=== PATIENT | male | born 1955 | race Caucasian/White ===

== ENCOUNTER 2019-02-28 17:53 | Emergency (ER) | payer BC ==
[~2019-02-28] VITALS: Ht 180.3 cm; Wt 94.0 kg
[2019-02-28] MEDS ORDERED: ZESTRIL10 M1 PO (18:04)
[2019-02-28 19:03] LABS: HEMATOCRIT 44.2 % (39.0-50.0); HEMOGLOBIN 14.8 g/dl (14.0-18.0); MEAN CORPUSCULAR HGB 29.5 pG CALC (26.0-32.0); MEAN CORPUSCULAR HGB CONC 33.5 g/L CALC (32.0-36.0); NEUT# 8.65 thou/uL (1.82-7.42); RED BLOOD COUNT 5.02 mill/uL (4.70-6.10); RED CELL DISTRI WIDTH 13.2 % (11.5-15.5)
[2019-02-28 19:11] LABS: ANION GAP 16 (6-22 (CALC)); BUN 27 mg/dL (8-23); BUN/CREATININE RATIO 32 (12-20 (CALC)); CARBON DIOXIDE 22 mmol/l (22-30); CHLORIDE 103 mmol/l (95-108); CREATININE 0.8 mg/dL (0.7-1.3); GFR > 60 ML/MIN (>=60 (CALC)); GFR FOR AFR.AMER. > 60 ML/MIN (>=60 (CALC)); POTASSIUM 3.9 mmol/l (3.5-5.1); SODIUM 137 mmol/l (137-146)
[2019-02-28] MEDS ORDERED: ULTRAM50 M1 PO (20:23)
[2019-02-28] MEDS ORDERED: LOMOTIL2.5 MG PO (20:23)
[2019-02-28] MEDS ORDERED: ZOFRAN ODT4 MG PO (20:23)
[2019-02-28 20:36] VITALS: BP 146/72
== END 2019-02-28 20:36 | disposition home or self-care (01) | DRG 392 ==
LOC: ED 17:53
PROVIDERS: Family Medicine
DX: K52.9 Noninfective gastroenteritis and colitis, unspecified (principal); I10 Essential (primary) hypertension

== ENCOUNTER 2019-03-17 11:07 | Day surgery (SDC) | payer BC ==
[~2019-03-17] VITALS: Ht 181.6 cm; Wt 85.7 kg
[~2019-03-17 11:07] MED LIST: LOMOTIL2.5 MG PO; ULTRAM50 M1 PO; ZESTRIL10 M1 PO; ZOFRAN ODT4 MG PO
[2019-03-17 13:01] VITALS: BP 118/57
== END 2019-03-17 13:13 | disposition home or self-care (01) | DRG 379 ==
LOC: ENDO 11:07 → ORM 13:00 → ENDO 13:00
PROVIDERS: ATTEND Internal Medicine Gastroenterology
PROC: 0DB48ZX Excision of Esophagogastric Junction, Via Natural or Artificial Opening Endoscopic, Diagnostic (ICD-10-PCS; principal; 2019-03-17)
PROC: 0DBN8ZX Excision of Sigmoid Colon, Via Natural or Artificial Opening Endoscopic, Diagnostic (ICD-10-PCS; 2019-03-17)
PROC: 0DBK8ZX Excision of Ascending Colon, Via Natural or Artificial Opening Endoscopic, Diagnostic (ICD-10-PCS; 2019-03-17)
PROC: 0DBP8ZX Excision of Rectum, Via Natural or Artificial Opening Endoscopic, Diagnostic (ICD-10-PCS; 2019-03-17)
DX: K29.71 Gastritis, unspecified, with bleeding (principal); K44.9 Diaphragmatic hernia without obstruction or gangrene; K20.9 Esophagitis, unspecified; K57.31 Diverticulosis of large intestine without perforation or abscess with bleeding; D12.2 Benign neoplasm of ascending colon; K63.5 Polyp of colon; K62.1 Rectal polyp; K64.4 Residual hemorrhoidal skin tags; K64.8 Other hemorrhoids; I10 Essential (primary) hypertension; Z87.891 Personal history of nicotine dependence

== ENCOUNTER 2020-07-10 01:12 | Emergency (ER) | payer MEDICARE, BC ==
[~2020-07-10] VITALS: Ht 181.6 cm; Wt 94.0 kg
[2020-07-10 02:02] LABS: HEMATOCRIT 46.4 % (39.0-50.0); HEMOGLOBIN 15.5 g/dl (14.0-18.0); IMMATURE GRANULOCYTES 0.4 % (0.0-5.0); MEAN CELL VOLUME 90.1 fL CALC (80.0-100.0); MEAN CORPUSCULAR HGB 30.1 pG CALC (26.0-32.0); MEAN CORPUSCULAR HGB CONC 33.4 g/dL CAL (32.0-36.0); NEUT# 5.99 thou/uL (1.82-7.42); RED BLOOD COUNT 5.15 mill/uL (4.70-6.10); RED CELL DISTRI WIDTH 12.5 % (11.5-15.5)
[2020-07-10 02:02] LABS: URINE BILIRUBIN - DIPSTICK NEGATIVE (NEGATIVE); URINE BLOOD DIPSTICK NEGATIVE (NEGATIVE); URINE COLOR YELLOW; URINE GLUCOSE - DIPSTICK NEGATIVE (NEGATIVE); URINE KETONE NEGATIVE (NEGATIVE); URINE LEUK ESTERASE NEGATIVE (NEGATIVE); URINE NITRITE - DIPSTICK NEGATIVE (Negative); URINE PH 5.5 (4.5-8.0); URINE PROTEIN - DIPSTICK NEGATIVE (NEG-TRACE); URINE SPECIFIC GRAVITY 1.025; URINE UROBILINOGEN - DIPSTICK 0.2 E.U./dL (0.2)
[2020-07-10 02:18] LABS: ALBUMIN 4.6 g/dL (3.2-5.0); ALKALINE PHOSPHATASE 63 u/l (38-126); ANION GAP 14 (6-22 (CALC)); BILIRUBIN, TOTAL 0.4 mg/dL (0.0-1.4); BUN 28 mg/dL (8-23); BUN/CREATININE RATIO 31 (12-20 (CALC)); CARBON DIOXIDE 26 mmol/l (22-30); CHLORIDE 102 mmol/l (95-108); CREATININE 0.9 mg/dL (0.7-1.3); GFR > 60 ML/MIN (>=60 (CALC)); GFR FOR AFR.AMER. > 60 ML/MIN (>=60 (CALC)); POTASSIUM 4.4 mmol/l (3.5-5.1); SGOT/AST 25 u/l (19-48); SODIUM 138 mmol/l (137-146); TOTAL PROTEIN 7.5 g/dL (6.3-8.2)
[2020-07-10 02:19] LABS: ACT PARTIAL THROMBO TIME 21.9 SECONDS (20.0-32.5); PROTHROMBIN TIME 9.6 SECONDS (9.0-12.5)
[2020-07-10] MEDS ORDERED: HYDROCO/APAP1 TA9 PO (04:27)
[2020-07-10] MEDS ORDERED: FLEXERIL PO (04:27)
[2020-07-10 04:40] VITALS: BP 135/75
== END 2020-07-10 04:40 | disposition home or self-care (01) ==
LOC: ED 01:12
DX: S39.012A Strain of muscle, fascia and tendon of lower back, initial encounter (principal); I10 Essential (primary) hypertension; X58.XXXA Exposure to other specified factors, initial encounter
CPT/HCPCS: Q9967

== ENCOUNTER 2021-04-01 03:23 | Emergency (ER) | payer MEDICARE ==
[~2021-04-01] VITALS: Ht 180.3 cm; Wt 94.5 kg
[~2021-04-01 03:23] MED LIST changes: +FLEXERIL PO; +HYDROCO/APAP1 TA9 PO
[2021-04-01] MEDS ORDERED: LISINOP/HCTZ1 TA1 PO (03:44)
[2021-04-01] MEDS ORDERED: CLOPIDOGREL75 MG PO (03:45)
[2021-04-01] MEDS ORDERED: TOPROL XL25 MG PO (03:45)
[2021-04-01] MEDS ORDERED: ATORVASTATIN CA40 MG PO (03:46)
[2021-04-01] MEDS ORDERED: GABAPENTIN300 M2 PO (03:47)
[2021-04-01] MEDS ORDERED: KLOR-CON M1010 MEQ PO (03:48)
[2021-04-01] MEDS ORDERED: ASPIRIN ADULT L81 M2 PO (03:49)
[2021-04-01 03:55] LABS: HEMATOCRIT 43.6 % (39.0-50.0); HEMOGLOBIN 14.6 g/dl (14.0-18.0); IMMATURE GRANULOCYTES 0.7 % (0.0-5.0); MEAN CELL VOLUME 89.5 fL CALC (80.0-100.0); MEAN CORPUSCULAR HGB CONC 33.5 g/dL CAL (32.0-36.0); NEUT# 5.35 thou/uL (1.82-7.42); RED BLOOD COUNT 4.87 mill/uL (4.70-6.10)
[2021-04-01 03:56] LABS: URINE BLOOD DIPSTICK NEGATIVE (NEGATIVE); URINE COLOR YELLOW; URINE GLUCOSE - DIPSTICK NEGATIVE (NEGATIVE); URINE KETONE NEGATIVE (NEGATIVE); URINE LEUK ESTERASE NEGATIVE (NEGATIVE); URINE PH 5.5 (4.5-8.0); URINE PROTEIN - DIPSTICK 30 mg/dL (NEG-TRACE); URINE SPECIFIC GRAVITY >=1.030; URINE UROBILINOGEN - DIPSTICK 0.2 E.U./dL (0.2)
[2021-04-01 04:01] LABS: URINE BILIRUBIN - DIPSTICK NEGATIVE (NEGATIVE); URINE NITRITE - DIPSTICK NEGATIVE (Negative)
[2021-04-01 04:07] LABS: ALBUMIN 4.2 g/dL (3.2-5.0); ALKALINE PHOSPHATASE 58 u/l (38-126); ANION GAP 13 (6-22 (CALC)); BUN 21 mg/dL (8-23); BUN/CREATININE RATIO 25 (12-20 (CALC)); CARBON DIOXIDE 28 mmol/l (22-30); CHLORIDE 101 mmol/l (95-108); CREATININE 0.8 mg/dL (0.7-1.3); GFR > 60 ML/MIN (>=60 (CALC)); GFR FOR AFR.AMER. > 60 ML/MIN (>=60 (CALC)); POTASSIUM 4.1 mmol/l (3.5-5.1); SGOT/AST 26 u/l (19-48); SODIUM 138 mmol/l (137-146); TOTAL PROTEIN 7.5 g/dL (6.3-8.2)
[2021-04-01 04:13] LABS: URINE MUCUS FEW hpf (NONE-FEW); URINE RBC 0-2 RBC/hpf (0-5); URINE SQUAMOUS EPITHELIAL CELL FEW EPI/hpf (0-FEW); URINE WBC 0-2 WBC/hpf (0-5)
[2021-04-01 04:14] LABS: BILIRUBIN, TOTAL 0.6 mg/dL (0.0-1.4)
[2021-04-01] MEDS ORDERED: MECLIZINE25 MG PO (05:08)
[2021-04-01 05:26] VITALS: BP 167/81
== END 2021-04-01 05:32 | disposition home or self-care (01) ==
LOC: ED 03:23
PROVIDERS: Family Medicine
DX: R42 Dizziness and giddiness (principal); I10 Essential (primary) hypertension

== ENCOUNTER 2022-08-13 12:05 | Emergency (ER) | payer MEDICARE ==
[~2022-08-13] VITALS: Ht 180.3 cm; Wt 94.0 kg
[~2022-08-13 12:05] MED LIST changes: +ASPIRIN ADULT L81 M2 PO; +ATORVASTATIN CA40 MG PO; +CLOPIDOGREL75 MG PO; +GABAPENTIN300 M2 PO; +KLOR-CON M1010 MEQ PO; +LISINOP/HCTZ1 TA1 PO; +MECLIZINE25 MG PO; +TOPROL XL25 MG PO
[2022-08-13] MEDS ORDERED: NAPROXEN500 MG PO (14:34)
[2022-08-13] MEDS ORDERED: METHOCARBAMOL500 MG PO (14:34)
[2022-08-13 14:39] VITALS: BP 153/73
== END 2022-08-13 14:45 | disposition home or self-care (01) ==
LOC: ED 12:05
DX: S46.912A Strain of unspecified muscle, fascia and tendon at shoulder and upper arm level, left arm, initial encounter (principal); I10 Essential (primary) hypertension; E11.9 Type 2 diabetes mellitus without complications; I25.10 Atherosclerotic heart disease of native coronary artery without angina pectoris; W19.XXXA Unspecified fall, initial encounter; Y92.009 Unspecified place in unspecified non-institutional (private) residence as the place of occurrence of the external cause

== ENCOUNTER 2022-11-09 07:28 | Day surgery (SDC) | payer MEDICARE ==
[~2022-11-09 07:28] MED LIST changes: +METFORMIN500 M2 PO; +METHOCARBAMOL500 MG PO; +NAPROXEN500 MG PO
[2022-11-09 13:05] VITALS: BP 136/63
== END 2022-11-09 13:21 | disposition home or self-care (01) ==
LOC: ORM 07:28
PROVIDERS: ATTEND Orthopaedic Surgery
PROC: 0RRK00Z Replacement of Left Shoulder Joint with Reverse Ball and Socket Synthetic Substitute, Open Approach (ICD-10-PCS; principal; 2022-11-09)
PROC: 0LS40ZZ Reposition Left Upper Arm Tendon, Open Approach (ICD-10-PCS; 2022-11-09)
PROC: 3E0T3BZ Introduction of Anesthetic Agent into Peripheral Nerves and Plexi, Percutaneous Approach (ICD-10-PCS; 2022-11-09)
DX: M19.012 Primary osteoarthritis, left shoulder (principal); M75.122 Complete rotator cuff tear or rupture of left shoulder, not specified as traumatic; S46.212A Strain of muscle, fascia and tendon of other parts of biceps, left arm, initial encounter; I10 Essential (primary) hypertension; E11.9 Type 2 diabetes mellitus without complications; X58.XXXA Exposure to other specified factors, initial encounter; Z79.84 Long term (current) use of oral hypoglycemic drugs; Z87.891 Personal history of nicotine dependence
CPT/HCPCS: C9290; J0131

== ENCOUNTER 2023-02-09 06:10 | Observation (INO) | payer OTHER, MEDICARE ==
[~2023-02-09] VITALS: Ht 180.3 cm; Wt 96.0 kg
[2023-02-09] VITALS (31 sets, daily range): BP systolic 94–158; BP diastolic 47–129
--- NOTE | 2023-02-09 06:10 | NUR ---
PT ARRIVED VIA EMS. WITH A C-COLLAR ON. PT IS ALERT AND OX4. BLEEDING TO THE HEAD LACERATION IS CONTROLLED.
--- NOTE | 2023-02-09 06:30 | NUR ---
PROVIDER STAPPLED THE LACERATION TO THE BACK OF THE HEAD WHILE 2 STAFF MEMBERS HELD C-SPINE STABLE.
[2023-02-09 06:48] LABS: BASO% 0.3 % (0-3); EOS% 1.6 % (0-8); HEMOGLOBIN 13.8 g/dl (14.0-18.0); IMMATURE GRANULOCYTES 0.4 % (0.0-5.0); LYMPH% 18.3 % (15-41); MEAN CELL VOLUME 89.9 fL CALC (80.0-100.0); MEAN CORPUSCULAR HGB 29.6 pG CALC (26.0-32.0); MEAN CORPUSCULAR HGB CONC 32.9 g/dL CAL (32.0-36.0); MONO% 9.5 % (2-13); NEUT# 6.36 thou/uL (1.82-7.42); NEUT% 69.9 % (42-76); RED BLOOD COUNT 4.67 mill/uL (4.70-6.10); RED CELL DISTRI WIDTH 13.2 % (11.5-15.5)
--- NOTE | 2023-02-09 06:48 | NUR ---
STROKE ALERT CALLED. PT HAS BEEN TRANSPORTED TO CT PER PROTOCOL. NEURO CONSULT VIA TELEHEALTH COMPLETE.
--- NOTE | 2023-02-09 06:49 | NUR ---
PROVIDER CALLED A STROKE ALERT AT [id number]
--- NOTE | 2023-02-09 06:50 | NUR ---
REPORT TO FABRICE BATES.
[2023-02-09 07:00] LABS: GFR FOR AFR.AMER. > 60 ML/MIN (>=60 (CALC)); GFR OTHER RACES > 60 ML/MIN (>=60 (CALC))
[2023-02-09 07:02] LABS: PROTHROMBIN TIME 10.1 SECONDS (9.0-12.5)
[2023-02-09 07:03] LABS: ALBUMIN 4.5 g/dL (3.2-5.0); ALKALINE PHOSPHATASE 69 u/l (38-126); ANION GAP 13 (6-22 (CALC)); BILIRUBIN, TOTAL 0.5 mg/dL (0.2-1.3); BUN 26 mg/dL (8-23); BUN/CREATININE RATIO 28 (12-20 (CALC)); CARBON DIOXIDE 27 mmol/l (22-30); CHLORIDE 104 mmol/l (95-108); CREATININE 0.9 mg/dL (0.7-1.3); GFR FOR AFR.AMER. > 60 ML/MIN (>=60 (CALC)); GFR OTHER RACES > 60 ML/MIN (>=60 (CALC)); POTASSIUM 4.3 mmol/l (3.5-5.1); SODIUM 140 mmol/l (137-146); TOTAL PROTEIN 7.4 g/dL (6.3-8.2)
[2023-02-09 07:07] LABS: SGOT/AST 87 u/l (19-48)
[2023-02-09 07:12] LABS: D-DIMER 1.46 mg/L (0.19-0.60)
--- NOTE | 2023-02-09 08:00 | NUR ---
pt has c/o pain, will medicate,
[2023-02-09 08:49] LABS: URINE BLOOD DIPSTICK NEGATIVE (NEGATIVE); URINE COLOR YELLOW; URINE GLUCOSE - DIPSTICK NEGATIVE (NEGATIVE); URINE KETONE NEGATIVE (NEGATIVE); URINE LEUK ESTERASE NEGATIVE (NEGATIVE); URINE PH 5.5 (4.5-8.0); URINE PROTEIN - DIPSTICK 30 mg/dL (NEG-TRACE); URINE SPECIFIC GRAVITY 1.025; URINE UROBILINOGEN - DIPSTICK 0.2 E.U./dL (0.2)
[2023-02-09 08:53] LABS: URINE NITRITE - DIPSTICK NEGATIVE (Negative)
[2023-02-09 08:54] LABS: URINE EPITHELIAL CELLS FEW EPI/hpf (0-FEW); URINE MUCUS MODERATE hpf (NONE-FEW)
--- NOTE | 2023-02-09 10:00 | NUR ---
PT HAS NO CHANGE TO ASSESSMENT. C-COLLAR HAS BEEN REMOVED PER MD.
[2023-02-09] MEDS ORDERED: METFORMIN HCL500 M1 PO (10:11)
[2023-02-09] MEDS ORDERED: HYZAAR1 TA1 PO (10:13)
[2023-02-09] MEDS ORDERED: AMLODIPINE BESYL5 MG PO (10:14)
--- NOTE | 2023-02-09 10:45 | NUR ---
PT ARRIVED TO UNIT VIA STRETCHER - IV NOT DATED AND MED REC NOT COMPLETE - RN TOOK CARE OF - PT ALSO ARRIVED TO UNIT IN STREET [facility] - PT STATED HE JUST RECEIVED MORPHINE AND PAIN WAS OK AT THIS MOMENT - ASSESSMENT COMPLETED AND WILL CHART - ADMISSION TO BE COMPLETED - PT STABLE ON MONITOR AND ROOM AIR - PT CAME UP WITHOUT C-COLLAR AND PER NURSE IT WAS REMOVED BEFORE - BED IN LOW LOCKED POSITION AND SAFETY PRECAUTIONS IN PLACE - CALL LIGHT IN REACH
--- NOTE | 2023-02-09 10:50 | NUR ---
REPORT GIVEN TO PAULO CROWELL. PT HAS NO COMPLAINTS, ALL BELONGINGS WITH PT. PT HAS NO COMPLAINTS AT THIS TIME.
--- NOTE | 2023-02-09 12:38 | NUR ---
PT C/O 02/17 PAIN FROM HEAD LACERATION - ASKING FOR SOMETHING STRONGER THEN TYLENOL - MD NOTIFED AND HE WILL ORDER - CALL LIGHT IN REACH
--- NOTE | 2023-02-09 14:20 | NUR ---
PT TAKEN TO ECHO - BELONGINGS SENT TO ROOM 269 AND REPORT GIVEN TO YOHANNES RN - PT LEFT IN STABLE CONDITION ON TELE MONITOR
--- NOTE | 2023-02-09 14:25 | NUR ---
PT BROUGHT TO ECHO VIA WHEELCHAIR AND ON TELE-MONITOR. VSS.
--- NOTE | 2023-02-09 15:00 | NUR ---
PT UP TO RM 263, PT HAS NO C/O PAIN AT THIS ITME. TP IS ALERT AND ORIENTED X 4. IV SITE TO THE LAC CLEAN AND INACT. PT AMBULATES WELL TO THE BATHROOM FOR TOILETING NEEDS. PT HAS 6 FARHAT TO THE BACK OF HEAD WITH SOME BLODDY DRAINAGE NOTED. PT ORIENTED TO RM. PT HAS CALL LIGHT WITHIN REACH.
--- NOTE | 2023-02-09 18:19 | NUR ---
PT C/O PAIN AT 7/10 ON PAIN SCALE, PRN MEDICATION GIVEN FOR PAIN . MIRIAM CONTINUE TO MONITOR PT. CALL LIGHT WITHIN REACH.
--- NOTE | 2023-02-09 19:46 | NUR ---
RECEIVED BEDSIDE REPORT. PT SITTING IN BED WATCHING TV. NO C/O OFFERED AT THIS TIME. CALL LIGHT IN REACH
[2023-02-10 00:04] VITALS: BP 137/65
[2023-02-10 04:49] VITALS: BP 135/59
[2023-02-10 05:03] LABS: BASO% 0.4 % (0-3); EOS% 1.9 % (0-8); HEMATOCRIT 41.9 % (39.0-50.0); HEMOGLOBIN 13.7 g/dl (14.0-18.0); IMMATURE GRANULOCYTES 0.1 % (0.0-5.0); LYMPH% 23.2 % (15-41); MEAN CELL VOLUME 90.7 fL CALC (80.0-100.0); MEAN CORPUSCULAR HGB 29.7 pG CALC (26.0-32.0); MEAN CORPUSCULAR HGB CONC 32.7 g/dL CAL (32.0-36.0); MONO% 11.2 % (2-13); NEUT# 5.03 thou/uL (1.82-7.42); NEUT% 63.2 % (42-76); RED BLOOD COUNT 4.62 mill/uL (4.70-6.10); RED CELL DISTRI WIDTH 13.4 % (11.5-15.5)
[2023-02-10 05:17] LABS: ALKALINE PHOSPHATASE 64 u/l (38-126); ANION GAP 12 (6-22 (CALC)); BILIRUBIN, TOTAL 0.4 mg/dL (0.2-1.3); BUN 20 mg/dL (8-23); BUN/CREATININE RATIO 28 (12-20 (CALC)); CARBON DIOXIDE 27 mmol/l (22-30); CHLORIDE 105 mmol/l (95-108); CREATININE 0.7 mg/dL (0.7-1.3); GFR FOR AFR.AMER. > 60 ML/MIN (>=60 (CALC)); GFR OTHER RACES > 60 ML/MIN (>=60 (CALC)); MAGNESIUM 1.9 mg/dL (1.6-2.3); SGOT/AST 43 u/l (19-48); SODIUM 140 mmol/l (137-146); TOTAL PROTEIN 6.7 g/dL (6.3-8.2)
[2023-02-10 06:54] VITALS: BP 158/73
--- NOTE | 2023-02-10 08:00 | NUR ---
GOT REPORT FROM WELL SERVICING RIG OPERATOR NURSE. PATIENT ASSESSED. AOX3. NO SXS OF DISTRESS AT THIS TIME. FALL PRECAUTIONS AT THIS TIME. CALL LIGHT AND BEDSIDE TABLE WITH IN REACH. ADVISED TO CALL ME IF NEEDING ANYTHING.
--- NOTE | 2023-02-10 10:50 | NUR ---
DR. RUFF AT BEDSIDE, PT VERBALIZES POOR PAIN CONTROL WITH CURRENT PRESCRIBED ANALGESIC. DISCUSSED WITH DR. RUFF. ORDERS TO CHANGE ULTRAM TO LORTAB RECEIVED.
[2023-02-10 12:01] LABS: URINE BILIRUBIN - DIPSTICK NEGATIVE (NEGATIVE)
--- NOTE | 2023-02-10 12:18 | NUR ---
PT CONSULT ORDERED, EVAL PENDING, POSSIBLE D/C AFTER EVAL. ATTEMPT MADE TO CONTACT PT DEPARTMENT AT [facility] 450 WITH NO ANSWER.
[2023-02-10] MEDS ORDERED: LORTAB5 PO (12:47)
[2023-02-10] MEDS ORDERED: MECLIZINE 2525 MG PO (12:47)
--- NOTE | 2023-02-10 13:32 | NUR ---
ANSWER RECEIVED AT [facility]T 450 DURING THIS ATTEMPT TO CONTACT PT DEPT. ADVISED PT EVAL WAS ORDERED AND NEEDED. PHYSICAL THERAPIST UNAVAILABLE AT THIS TIME AND ARE UNABLE TO PRTOVIDE TIME THEY WILL BE IN TO SEE PT. DR. RUFF MADE AWARE.
--- NOTE | 2023-02-10 15:47 | NUR ---
Discharge instructions given. Patient verbalizes understanding of same. Discharged in stable condition via Wheelchair to Home with spouse. All belongings sent with pt.
== END 2023-02-10 15:47 | disposition home or self-care (01) | DRG 312 ==
LOC: ED 06:10 → ED-I 09:23 → ED 09:36 → ICU 09:37 → MS2 09:37
PROVIDERS: Emergency Medicine; Family Medicine; Nurse Practitioner Family; ADMIT Internal Medicine; ATTEND Internal Medicine
PROC: 0HQ0XZZ Repair Scalp Skin, External Approach (ICD-10-PCS; principal; 2023-02-09)
DX: R55 Syncope and collapse (principal); I65.23 Occlusion and stenosis of bilateral carotid arteries; S01.01XA Laceration without foreign body of scalp, initial encounter; I10 Essential (primary) hypertension; E11.9 Type 2 diabetes mellitus without complications; E78.5 Hyperlipidemia, unspecified; R01.1 Cardiac murmur, unspecified; I35.0 Nonrheumatic aortic (valve) stenosis; I25.10 Atherosclerotic heart disease of native coronary artery without angina pectoris; W17.89XA Other fall from one level to another, initial encounter; Y93.89 Activity, other specified; Z79.84 Long term (current) use of oral hypoglycemic drugs
CPT/HCPCS: G0378; Q9967

== ENCOUNTER 2024-10-29 10:09 | Emergency (ER) | payer MEDICARE ==
[~2024-10-29] VITALS: Ht 180.3 cm; Wt 81.6 kg
[2024-10-29] VITALS (13 sets, daily range): BP systolic 101–162; BP diastolic 70–115
[~2024-10-29 10:09] MED LIST changes: +AMLODIPINE BESYL5 MG PO; +HYZAAR1 TA1 PO; +LORTAB5 PO; +MECLIZINE 2525 MG PO; +METFORMIN HCL500 M1 PO
[2024-10-29] MEDS ORDERED: IPRATROPIUM-Albuterol 0.5MG-2.5MG/3 ML IN ONE (10:45)
[2024-10-29] MEDS ORDERED: ZPAK PO (12:00)
[2024-10-29] MEDS ORDERED: BENZONATATE200 MG PO (12:00)
== END 2024-10-29 12:10 | disposition home or self-care (01) ==
LOC: ED 10:09
DX: J20.9 Acute bronchitis, unspecified (principal); I10 Essential (primary) hypertension; E78.5 Hyperlipidemia, unspecified; E11.9 Type 2 diabetes mellitus without complications; I25.10 Atherosclerotic heart disease of native coronary artery without angina pectoris; Z79.84 Long term (current) use of oral hypoglycemic drugs; Z20.822 Contact with and (suspected) exposure to COVID-19